=== PATIENT | male | born 1970 | race Asian ===

== ENCOUNTER 2018-07-23 16:58 | Emergency (ER) | payer OTHER ==
[~2018-07-23] VITALS: Ht 167.6 cm; Wt 88.0 kg
[~2018-07-23 16:58] MED LIST: ASPI-482 PO; CLOP75TA PO; CRESTOR10 MG PO; LORA10TA68 PO
[2018-07-23 19:03] LABS: BASO % 1 % (0-3); EOS # 0.1 x10^3/uL (0.0-0.7); EOS % 2 % (0-3); HEMATOCRIT 44.1 % (39.0-53.0); HEMOGLOBIN 15.6 g/dL (13.0-17.5); LYMPH # 2.1 x10^3/uL (1.0-4.8); LYMPH % 28 % (24-48); MEAN CORPUSCULAR HEMOGLOBIN 32 pg (25-35); MEAN CORPUSCULAR HGB CONC 35 g/dL (31-37); MEAN CORPUSCULAR VOLUME 91 fL (79-100); MONO # 0.5 x10^3/uL (0.0-1.1); MONO % 7 % (0-9); NEUT # 4.6 x10^3uL (1.8-7.7); NEUT % 63 % (31-73); PLATELET COUNT 205 x10^3/uL (140-400); RED BLOOD COUNT 4.84 x10^6/uL (4.30-5.70); RED CELL DISTRIBUTION WIDTH 12.6 % (11.5-14.5); WHITE BLOOD COUNT 7.3 x10^3/uL (4.0-11.0)
[2018-07-23 19:04] LABS: PROTHROMBIN TIME PATIENT 12.3 SEC (11.7-14.0)
[2018-07-23 19:16] LABS: CALCIUM 8.7 mg/dL (8.5-10.1); GFR 79.8; POTASSIUM 3.7 mmol/L (3.5-5.1)
[2018-07-23 19:17] VITALS: BP 123/76
[2018-07-23 19:23] LABS: ALBUMIN 3.5 g/dL (3.4-5.0); ALBUMIN/GLOBULIN RATIO 0.9 (1.0-1.7); TOTAL BILIRUBIN 0.3 mg/dL (0.2-1.0); TOTAL PROTEIN 7.4 g/dL (6.4-8.2)
[2018-07-23] MEDS ORDERED: IOHEXOL 300 MG/ML 100ML VIAL. IV ONE (19:30)
[2018-07-23] MEDS ORDERED: CONTRAST GIVEN. MC PRN (19:30)
--- NOTE | 2018-07-23 19:33 | PHYS DOC ---
Past Medical History Past Medical History: [place] Additional Past Medical Histor: [place] X4 Past Surgical History: Other Additional Past Surgical Histo: Stent placement/"for maker" Alcohol Use: Rarely Drug Use: None Adult General Chief Complaint Chief Complaint: ABDOMINAL PAIN HPI HPI Patient is a 48 year old male who presents with left lower quadrant abdominal pain. This is been getting worse over the past 6 days. No nausea or vomiting. No diarrhea. No black tarry stools. Worse with movement. Worse with laughing. Better with holding still. No home medicines been taken. Pain is mild to moderate in intensity. Patient was sent here by his primary care physician due to concern for diverticulitis. [] Review of Systems Review of Systems Constitutional: Denies fever or chills [] Eyes: Denies change in visual acuity, redness, or eye pain [] HENT: Denies nasal congestion or sore throat [] Respiratory: Denies cough or shortness of breath [] Cardiovascular: No chest pain or palpitations[] GI: See history of present illness[] : Denies dysuria or hematuria [] Musculoskeletal: Denies back pain or joint pain [] Integument: Denies rash or skin lesions [] Neurologic: Denies headache, focal weakness or sensory changes [] Endocrine: Denies polyuria or polydipsia [] All other systems were reviewed and found to be within normal limits, except as documented in this note. Current Medications Current Medications Current Medications Medications (Trade) Dose Ordered Sig/Anh Start Time Stop Time Status Last Admin Dose Admin Info (CONTRAST GIVEN -- Rx MONITORING) 1 each PRN DAILY PRN 07/23/18 19:30 07/25/18 19:29 Iohexol (Omnipaque 300 Mg/ml) 75 ml 1X ONCE 07/23/18 19:30 07/23/18 19:31 DC 07/23/18 19:50 75 ML Allergies Allergies Allergies Coded Allergies Type Severity Reaction Last Updated Verified No Known Drug Allergies 06/27/15 No Physical Exam Physical Exam Constitutional: Well developed, well nourished, no acute distress, non-toxic appearance. [] HENT: Normocephalic, atraumatic, bilateral external ears normal, oropharynx moist, no oral exudates, nose normal. [] Eyes: PERRLA, EOMI, conjunctiva normal, no discharge. [] Neck: Normal range of motion, no tenderness, supple, no stridor. [] Cardiovascular:Heart rate regular rhythm, no murmur [] Lungs & Thorax: Bilateral breath sounds clear to auscultation [] Abdomen: Bowel sounds normal, soft, tenderness in the left lower quadrant, no rebound, no guarding, no rigidity, sits up without any difficulty., no masses, no pulsatile masses. [] Skin: Warm, dry, no erythema, no rash. [] Back: No tenderness, no CVA tenderness. [] Extremities: No tenderness, no cyanosis, no clubbing, ROM intact, no edema. [] Neurologic: Alert and oriented X 3, normal motor function, normal sensory function, no focal deficits noted. [] Psychologic: Affect normal, judgement normal, mood normal. [] Current Patient Data Vital Signs Vital Signs Date Time Temp Pulse Resp B/P (MAP) Pulse Ox O2 Delivery O2 Flow Rate FiO2 07/23/18 19:17 58 20 123/76 (92) 97 Room Air 07/23/18 18:15 98.7 98.7 Lab Values Laboratory Tests Test 07/23/18 18:40 07/23/18 20:27 White Blood Count 7.3 x10^3/uL (4.0-11.0) Red Blood Count 4.84 x10^6/uL (4.30-5.70) Hemoglobin 15.6 g/dL (13.0-17.5) Hematocrit 44.1 % (39.0-53.0) Mean Corpuscular Volume 91 fL (79-100) Mean Corpuscular Hemoglobin 32 pg (25-35) Mean Corpuscular Hemoglobin Concent 35 g/dL (31-37) Red Cell Distribution Width 12.6 % (11.5-14.5) Platelet Count 205 x10^3/uL (140-400) Neutrophils (%) (Auto) 63 % (31-73) Lymphocytes (%) (Auto) 28 % (24-48) Monocytes (%) (Auto) 7 % (0-9) Eosinophils (%) (Auto) 2 % (0-3) Basophils (%) (Auto) 1 % (0-3) Neutrophils # (Auto) 4.6 x10^3uL (1.8-7.7) Lymphocytes # (Auto) 2.1 x10^3/uL (1.0-4.8) Monocytes # (Auto) 0.5 x10^3/uL (0.0-1.1) Eosinophils # (Auto) 0.1 x10^3/uL (0.0-0.7) Basophils # (Auto) 0.0 x10^3/uL (0.0-0.2) Prothrombin Time 12.3 SEC (11.7-14.0) Prothrombin Time INR 0.9 (0.8-1.1) Sodium Level 139 mmol/L (136-145) Potassium Level 3.7 mmol/L (3.5-5.1) Chloride Level 105 mmol/L (98-107) Carbon Dioxide Level 26 mmol/L (21-32) Anion Gap 8 (6-14) Blood Urea Nitrogen 10 mg/dL (8-26) Creatinine 1.0 mg/dL (0.7-1.3) Estimated GFR (Cockcroft-Gault) 79.8 BUN/Creatinine Ratio 10 (6-20) Glucose Level 102 mg/dL (70-99) H Calcium Level 8.7 mg/dL (8.5-10.1) Total Bilirubin 0.3 mg/dL (0.2-1.0) Aspartate Amino Transferase (AST) 49 U/L (15-37) H Alanine Aminotransferase (ALT) 124 U/L (16-63) H Alkaline Phosphatase 81 U/L (46-116) Total Protein 7.4 g/dL (6.4-8.2) Albumin 3.5 g/dL (3.4-5.0) Albumin/Globulin Ratio 0.9 (1.0-1.7) L Lipase 163 U/L (73-393) Urine Color Yellow Urine Clarity Clear Urine pH 6.0 Urine Specific [place] >=1.030 Urine Protein Negative mg/dL (NEG-TRACE) Urine Glucose (UA) Negative mg/dL (NEG) Urine Ketones (Stick) Negative mg/dL (NEG) Urine Blood Negative (NEG) Urine Nitrite Negative (NEG) Urine Bilirubin Negative (NEG) Urine Urobilinogen Dipstick 2.0 mg/dL (0.2 mg/dL) Urine Leukocyte Esterase Negative (NEG) Urine RBC Occ /HPF (0-2) Urine WBC Occ /HPF (0-4) Urine Squamous Epithelial Cells Occ /LPF Urine Bacteria 0 /HPF (0-FEW) Laboratory Tests 07/23/18 18:40 Laboratory Tests 07/23/18 18:40 EKG EKG [] Radiology/Procedures Radiology/Procedures CT ABD PELV W/ IV CONTRST ONLY Clinical Indication: LLQ ABD PAIN X A FEW DAYS NOW WORSENING Comparison: CT abdomen and pelvis with contrast December or 2015. Technique: Helical CT imaging of the abdomen and pelvis is performed after 75 cc of Omnipaque 300 IV contrast. Oral contrast not given. Findings: There is atelectasis in the posterior lower lobes bilaterally. Cardiac size is normal. The liver, gallbladder, spleen, pancreas, adrenal glands, and abdominal aorta caliber are normal. Sub-5 mm bilateral nonobstructing renal calculi redemonstrated. Bilateral perinephric stranding. Small cortical hypodensity of the upper pole the right kidney is similar. There is no hydronephrosis. Stomach is not well distended, limiting evaluation. No dilated small bowel. There is minimal induration adjacent to the mid descending colon, image 42, coronal image 18. An associated colon diverticulum is not seen. This segment of colon is not thick-walled. Although not classic in appearance, finding is probably due to epiploic appendagitis. There is no colon wall thickening. The appendix is normal. There is no abdominal adenopathy or free fluid. Urinary bladder is normal. Prostate size normal. No pelvic free fluid. Bilateral vasectomy clips. No acute bone abnormality. IMPRESSION: 1. Minimal induration adjacent to the mid descending colon is probably epiploic appendagitis. 2. Atelectasis in the posterior lower lobes bilaterally. 3. Bilateral nonobstructing renal calculi.[] Course & Med Decision Making Course & Med Decision Making Pertinent Labs and Imaging studies reviewed. (See chart for details) ED course: Patient arrived, was placed in bed, tolerated exam well. He was offered pain medicine at the outset of the visit which he deferred. He was transferred to and from [place] without any complications. After return of lab and CT findings, these were discussed with the patient who voiced understanding. All questions were answered. Medical decision making: There is no evidence of perforation, obstruction, UTI, diverticular disease, nor other ogqet-orknzsduj-egqkjyhj pathology.[] Dragon Disclaimer Dragon Disclaimer This electronic medical record was generated, in whole or in part, using a voice recognition dictation system. Departure Departure Impression: Primary Impression: Epiploic appendagitis Disposition: 01 HOME, SELF-CARE Condition: GOOD Referrals: UNKNOWN PCP NAME (PCP) Patient Instructions: Abdominal Pain Additional Instructions: Drink plenty fluids. Follow-up with your regular doctor in 2 days. Return to the ER if worsening pain, unable to tolerate liquids, or any other concerns. Scripts Tramadol Hcl (TRAMADOL HCL) 50 Mg Tablet 50 MG PO Q6HRS PRN for PAIN, #20 TAB Prov: FROYLAN YAN DO 07/23/18 Meloxicam (MELOXICAM) 7.5 Mg Tablet 7.5 MG PO DAILY, #20 TAB Prov: FROYLAN YAN DO 07/23/18 FROYLAN YAN DO Jul 23, 2018 19:33
--- NOTE | 2018-07-23 19:58 | RAD ---
PQRS Compliance Statement: One or more of the following individualized dose reduction techniques were utilized for this examination: 1. Automated exposure control 2. Adjustment of the mA and/or kV according to patient size 3. Use of iterative reconstruction technique CT ABD PELV W/ IV CONTRST ONLY Clinical Indication: LLQ ABD PAIN X A FEW DAYS NOW WORSENING Comparison: CT abdomen and pelvis with contrast December or 2015. Technique: Helical CT imaging of the abdomen and pelvis is performed after 75 cc of Omnipaque 300 IV contrast. Oral contrast not given. Findings: There is atelectasis in the posterior lower lobes bilaterally. Cardiac size is normal. The liver, gallbladder, spleen, pancreas, adrenal glands, and abdominal aorta caliber are normal. Sub-5 mm bilateral nonobstructing renal calculi redemonstrated. Bilateral perinephric stranding. Small cortical hypodensity of the upper pole the right kidney is similar. There is no hydronephrosis. Stomach is not well distended, limiting evaluation. No dilated small bowel. There is minimal induration adjacent to the mid descending colon, image 42, coronal image 18. An associated colon diverticulum is not seen. This segment of colon is not thick-walled. Although not classic in appearance, finding is probably due to epiploic appendagitis. There is no colon wall thickening. The appendix is normal. There is no abdominal adenopathy or free fluid. Urinary bladder is normal. Prostate size normal. No pelvic free fluid. Bilateral vasectomy clips. No acute bone abnormality. IMPRESSION: 1. Minimal induration adjacent to the mid descending colon is probably epiploic appendagitis. 2. Atelectasis in the posterior lower lobes bilaterally. 3. Bilateral nonobstructing renal calculi. Electronically signed by: Albin Casas MD (07/23/2018 7:54 PM) [facility]
[2018-07-23 20:48] LABS: BILIRUBIN,URINE NEGATIVE (NEG); CLARITY,URINE CLEAR; COLOR,URINE YELLOW; NITRITE,URINE NEGATIVE (NEG); PROTEIN,URINE NEGATIVE (NEG-TRACE)
[2018-07-23 20:54] LABS: BACTERIA,URINE 0 /HPF (0-FEW); RBC,URINE OCC /HPF (0-2); SQUAMOUS EPITHELIAL CELL,UR OCC /LPF; WBC,URINE OCC /HPF (0-4)
[2018-07-23] MEDS ORDERED: MELO7.5T29 PO (21:07)
[2018-07-23] MEDS ORDERED: TRAM50TA PO (21:07)
== END 2018-07-23 21:17 | disposition home or self-care (01) ==
LOC: ER 16:58
DX: K63.89 Other specified diseases of intestine (principal); N20.0 Calculus of kidney; J98.11 Atelectasis; I25.2 Old myocardial infarction; Z95.5 Presence of coronary angioplasty implant and graft
CPT/HCPCS: 36415; 74177; 80053; 81001; 83690; 85025; 85610; 99284; Q9967

== ENCOUNTER 2021-04-27 03:04 | Emergency (ER) | payer OTHER ==
[~2021-04-27] VITALS: Ht 165.1 cm; Wt 72.7 kg
[~2021-04-27 03:04] MED LIST changes: +ASCO500T4 PO; +ICOS1CAP PO; +MELO7.5T29 PO; +METO-239 PO; +NITR0.4T24 SL; +TRAM50TA PO; +VITA400C37 PO
[2021-04-27 06:41] LABS: BILIRUBIN,URINE NEGATIVE (NEG); CLARITY,URINE CLEAR; COLOR,URINE YELLOW; NITRITE,URINE NEGATIVE (NEG); PH,URINE 6.5 (<5.0-8.0); PROTEIN,URINE NEGATIVE (NEG-TRACE); UROBILINOGEN,URINE 0.2 mg/dL (0.2 mg/dL)
[2021-04-27 06:47] LABS: BARBITURATES NEG (NEG); BENZODIAZEPINES NEG (NEG); CANNABINOIDS POS (NEG); COCAINE NEG (NEG); METHADONE NEG (NEG); OPIATES NEG (NEG); PHENCYCLIDINE NEG (NEG)
[2021-04-27 06:51] LABS: AMPHETAMINE/METHAMPHETAMINE NEG (NEG)
[2021-04-27 06:57] LABS: BACTERIA,URINE 0 /HPF (0-FEW); RBC,URINE 0 /HPF (0-2); WBC,URINE OCC /HPF (0-4)
--- NOTE | 2021-04-27 08:19 | PHYS DOC ---
Past Medical History Past Medical History: CAD, High Cholesterol, Hypertension, [place] Additional Past Medical Histor: [place] X4, POOR HISTORIAN Past Surgical History: Other Additional Past Surgical Histo: Stent placement Smoking Status: Current Every Day Smoker Alcohol Use: Rarely Drug Use: None General Adult EDM: Chief Complaint: MANIC BEHAVIOR HPI: HPI: Patient is a 51 year old male who presents here with abnormal mood and affect. His symptoms have reportedly been present for a few weeks, per his significant other. On arrival, the patient is hyperverbal, yelling at staff, is very demanding and relatively verbally abusive. The patient, when asked what his presenting complaint is, begins yelling at the nursing staff and repeatedly screams to call his significant other, Randa. The nursing staff contacted Randa, and she reports that over the last few weeks, he is behavior has become erratic, he has been yelling and shouting and appears to be manic. He does not have any reported history of nathen or bipolar disorder or mood disorder, is not currently receiving any psychiatric treatment per her report. The patient also corroborates this. The patient significant other reports that he has been behaving inappropriately at work as well, and reportedly his coworkers have been calling her to ask if she is safe at home with him. The patient denies SI or HI symptoms. He denies any physical pain or discomfort. He denies chest pain, dyspnea, dizziness, headache, nausea or vomiting. He admits to using marijuana and occasionally drinking alcohol, though denies daily use. He denies other illicit drug use. He denies any hallucinations. When asked questions for routine HPI, the patient becomes angry at most questions and screams "I do not know, I am not a doctor, you tell me." He is an incredibly poor historian. Review of Systems: Review of Systems: Constitutional: Denies fever or chills. [] Eyes: Denies change in visual acuity. [] HENT: Denies nasal congestion or sore throat. [] Respiratory: Denies cough or shortness of breath. [] Cardiovascular: Denies chest pain or edema. [] GI: Denies abdominal pain, nausea, vomiting, bloody stools or diarrhea. [] : Denies urinary symptoms. [] Musculoskeletal: Denies back pain or joint pain. [] Integument: Denies rash. [] Neurologic: Denies headache, focal weakness or sensory changes. [] Endocrine: Denies polyuria or polydipsia. [] Lymphatic: Denies swollen glands. [] Psychiatric: Mood disturbance noted as per HPI. Denies SI or HI. Heart Score: C/O Chest Pain: No Risk Factors: Risk Factors: DM, Current or recent (<one month) smoker, HTN, HLP, family history of CAD, obesity. Risk Scores: Score 0 - 3: 2.5% MACE over next 6 weeks - Discharge Home Score 4 - 6: 20.3% MACE over next 6 weeks - Admit for Clinical Observation Score 7 - 10: 72.7% MACE over next 6 weeks - Early Invasive Strategies Current Medications: Current Medications Medications (Trade) Dose Ordered Sig/Anh Start Time Stop Time Status Last Admin Dose Admin Lorazepam (Ativan Inj) 1 mg 1X ONCE 04/27/21 06:00 04/27/21 06:01 DC 04/27/21 05:47 1 MG Allergies: Allergies: Allergies Coded Allergies Type Severity Reaction Last Updated Verified No Known Drug Allergies 06/27/15 No Physical Exam: PE: Constitutional: Well developed, well nourished, no acute distress, non-toxic appearance. Yelling and screaming on the ED gurney. He is not acutely ill appearing. HENT: Normocephalic, atraumatic, bilateral external ears normal, oropharynx moist, no oral exudates, nose normal. [] Eyes: PERRLA, EOMI, conjunctiva normal, no discharge. [] Neck: Normal range of motion, no tenderness, supple, no stridor. [] Cardiovascular:Heart rate regular rhythm, no murmur [] Lungs & Thorax: Bilateral breath sounds clear to auscultation [] Abdomen: Bowel sounds normal, soft, no tenderness, no masses, no pulsatile masses. [] Skin: Warm, dry, no erythema, no rash. [] Back: No tenderness, no CVA tenderness. [] Extremities: No tenderness, no cyanosis, no clubbing, ROM intact, no edema. [] Neurologic: Alert and oriented X 3, normal motor function, normal sensory function, no focal deficits noted. [] Psychologic: Anxious, pressured speech, cursing and angry frequently, ultimately redirectable. Flight of ideas. Does not appear to be responding to external or internal stimuli. Denies SI or HI. Current Patient Data: Labs: Laboratory Tests Test 04/27/21 06:26 Urine Collection Type Unknown Urine Color Yellow Urine Clarity Clear Urine pH 6.5 (<5.0-8.0) Urine Specific [place] <=1.005 (1.000-1.030) Urine Protein Negative mg/dL (NEG-TRACE) Urine Glucose (UA) Negative mg/dL (NEG) Urine Ketones (Stick) Negative mg/dL (NEG) Urine Blood Trace (NEG) Urine Nitrite Negative (NEG) Urine Bilirubin Negative (NEG) Urine Urobilinogen Dipstick 0.2 mg/dL (0.2 mg/dL) Urine Leukocyte Esterase Negative (NEG) Urine RBC 0 /HPF (0-2) Urine WBC Occ /HPF (0-4) Urine Squamous Epithelial Cells Occ /LPF Urine Bacteria 0 /HPF (0-FEW) Urine Opiates Screen Neg (NEG) Urine Methadone Screen Neg (NEG) Urine Barbiturates Neg (NEG) Urine Phencyclidine Screen Neg (NEG) Urine Amphetamine/Methamphetamine Neg (NEG) Urine Benzodiazepines Screen Neg (NEG) Urine Cocaine Screen Neg (NEG) Urine Cannabinoids Screen Pos (NEG) Urine Ethyl Alcohol Neg (NEG) Vital Signs: Vital Signs Date Time Temp Pulse Resp B/P (MAP) Pulse Ox O2 Delivery O2 Flow Rate FiO2 04/27/21 06:30 76 22 98 Room Air 04/27/21 05:10 96.6 143/73 (96) 96.6 EKG: EKG: [] Radiology/Procedures: Radiology/Procedures: [] Course & Med Decision Making: Course & Med Decision Making Pertinent Labs and Imaging studies reviewed. (See chart for details) I ordered intramuscular Ativan for the patient. Laboratory studies were ordered. He appears to be resting more comfortably and has calmed down. He requires formal mental health evaluation. I am transferring care to Dr. Pinzon at 0600 to follow-up on patient's labs and mental health evaluation. The patient is stable at time of transfer of care. Dragon Disclaimer: Dragon Disclaimer: This electronic medical record was generated, in whole or in part, using a voice recognition dictation system. Departure Departure Impression: Primary Impression: Manic behavior Referrals: UNKNOWN PCP NAME (PCP) GIOVANNY COREY DO Apr 27, 2021 08:19
[2021-04-27 08:24] LABS: BASO % 0 % (0-3); EOS % 0 % (0-3); HEMATOCRIT 40.3 % (39.0-53.0); HEMOGLOBIN 14.2 g/dL (13.0-17.5); LYMPH # 2.1 x10^3/uL (1.0-4.8); LYMPH % 26 % (24-48); MEAN CORPUSCULAR HEMOGLOBIN 33 pg (25-35); MEAN CORPUSCULAR HGB CONC 35 g/dL (31-37); MEAN CORPUSCULAR VOLUME 93 fL (79-100); MONO # 0.5 x10^3/uL (0.0-1.1); MONO % 6 % (0-9); NEUT # 5.6 x10^3/uL (1.8-7.7); NEUT % 67 % (31-73); PLATELET COUNT 224 x10^3/uL (140-400); RED BLOOD COUNT 4.33 x10^6/uL (4.30-5.70); RED CELL DISTRIBUTION WIDTH 12.2 % (11.5-14.5); WHITE BLOOD COUNT 8.3 x10^3/uL (4.0-11.0)
[2021-04-27 08:30] LABS: CALCIUM 8.5 mg/dL (8.5-10.1); GFR 78.8; POTASSIUM 3.2 mmol/L (3.5-5.1)
[2021-04-27 08:34] LABS: ACETAMIN < 2 mcg/ml (10-30); ETHANOL < 10 mg/dL (0-10); SALIC 4.7 mg/dL (2.8-20.0)
[2021-04-27 08:35] LABS: ALBUMIN 3.6 g/dL (3.4-5.0); TOTAL BILIRUBIN 0.8 mg/dL (0.2-1.0); TOTAL PROTEIN 7.2 g/dL (6.4-8.2)
[2021-04-27] MEDS ORDERED: ZIPRASIDONE IM 20 MG VIAL. IM ONE (11:50)
[2021-04-27] MEDS ORDERED: HALOPERIDOL LACTATE 5 MG/ML VIAL. ONE (11:50)
[2021-04-27] MEDS ORDERED: HALOPERIDOL LACTATE 5 MG/ML VIAL. IM ONE (12:00)
--- NOTE | 2021-04-27 12:32 | RAD ---
EXAM: Head CT without contrast. HISTORY: Mental status changes. TECHNIQUE: Computed tomographic images of the head were obtained without contrast. *One or more of the following individualized dose reduction techniques were utilized for this examina tion: 1. Automated exposure control. 2. Adjustment of the mA and/or kV according to patient size. 3. Use of iterative reconstruction technique. COMPARISON: None. FINDINGS: There is no acute or subacute extra-axial or intraparenchymal hemorrhage. There is no mass effect or midline shift. There is no hydrocephalus. The alngley-white matter differentiation pattern is intact. There is mild paranasal sinus because of thickening. There is a tiny mucous tension cyst or fluid wit hin the right aspect of the sphenoid sinus. The mastoid air cells are clear. IMPRESSION: No acute intracranial findings. Electronically signed by: Ana Mendoza MD (04/27/2021 12:29 PM) [id number]
[2021-04-28 20:40] VITALS: BP 137/76
== END 2021-04-28 20:50 ==
LOC: ER 03:04
DX: F30.9 Manic episode, unspecified (principal); R45.1 Restlessness and agitation; I25.10 Atherosclerotic heart disease of native coronary artery without angina pectoris; E78.00 Pure hypercholesterolemia, unspecified; I10 Essential (primary) hypertension; I25.2 Old myocardial infarction; F17.200 Nicotine dependence, unspecified, uncomplicated; Z20.822 Contact with and (suspected) exposure to COVID-19
CPT/HCPCS: 36415; 70450; 80053; 80307; 80329; 81001; 85025; 87426; 96372; 99285; G0480; J1630; J2060; U0003; U0005